=== PATIENT | male | born 1990 | race Caucasian/White ===

== ENCOUNTER 2017-11-14 17:20 | Emergency (ER) | payer OTHER ==
[2017-11-14] MEDS: MUPIROCIN 2% 22 GM OINT TOP (19:50)
== END 2017-11-14 19:59 | disposition home or self-care (01) ==
LOC: FTE 17:20
DX: L73.1 Pseudofolliculitis barbae (principal); F17.210 Nicotine dependence, cigarettes, uncomplicated
CPT/HCPCS: 99284; Z7502

== ENCOUNTER 2017-12-30 22:08 | Emergency (ER) | payer SELFPAY, OTHER | END 2017-12-31 00:45 | disposition left against medical advice (07) | LOC: E/R 22:08 | DX: Z53.21 Procedure and treatment not carried out due to patient leaving prior to being seen by health care provider (principal) ==

== ENCOUNTER 2018-02-01 20:27 | Emergency (ER) | payer OTHER | END 2018-02-01 20:40 | disposition home or self-care (01) | LOC: E/R 20:27 | DX: F19.10 Other psychoactive substance abuse, uncomplicated (principal); Z87.891 Personal history of nicotine dependence | CPT/HCPCS: 99283 ==

== ENCOUNTER 2018-04-24 00:17 | Emergency (ER) | payer SELFPAY, OTHER | END 2018-04-24 01:55 | disposition left against medical advice (07) | LOC: E/R 00:17 | DX: Z53.21 Procedure and treatment not carried out due to patient leaving prior to being seen by health care provider (principal) ==